=== PATIENT | male | born 1955 ===

== ENCOUNTER 2023-02-28 11:32 | Emergency (ER) | payer OTHER, MEDICAID, SELFPAY ==
--- NOTE | 2023-02-28 | ECG_ITS ---
Test Reason : CHEST PAIN Blood Pressure : / mmHG Vent. Rate : 080 BPM Atrial Rate : 080 BPM P-R Int : 190 ms QRS Dur : 118 ms QT Int : 390 ms P-R-T Axes : 000 -04 034 degrees QTc Int : 449 ms Normal sinus rhythm Low voltage QRS Right bundle branch block Abnormal ECG No previous ECGs available Referred By: Generic ED Physician Electronically Signed By:RONEY WADE
--- NOTE | ~2023-02-28 | CT_ITS ---
EXAMINATION: CT HEAD WITHOUT CONTRAST CLINICAL INFORMATION: Altered mental status. COMPARISON: None. TECHNIQUE: Multidetector volumetric imaging of the head was performed without intravenous contrast material. This CT examination was performed using dose optimization techniques as appropriate, variously including the following: *Automated exposure control *Adjustment of mA and/or kV according to patient size (this includes techniques or standardized protocols for targeted exams where dose is matched to indication/reason for exam; i.e. extremities or head) *Use of iterative reconstruction technique Dose: 1000 mGy-cm FINDINGS: Dense, dystrophic calcifications are present in the right basal ganglia and thalamus, most notably along the posterior and lateral margins of the thalamus. There is decreased volume of the right thalamus as well as wallerian degeneration along the right corticospinal tract at the right cerebellar peduncle. There is no evidence of acute intracranial hemorrhage or territorial infarction. No abnormal mass-effect or midline shift is seen. [place] to white matter differentiation is well preserved. No extra axial fluid collections. Mild enlargement of the ventricles, sulci, and extra-axial CSF spaces is indicative of parenchymal volume loss. Multiple areas of hypoattenuation in the subcortical and periventricular white matter are most consistent with chronic microangiopathic changes. The soft tissues and osseous structures are normal. The sinuses and mastoid air cells are clear. CT/CT head/brain wo IV con IMPRESSION: 1. No acute intracranial pathology. 2. Dystrophic calcifications in the right basal ganglia and thalamus with associated Wallerian degeneration along the right corticospinal tract, potentially corresponding to the sequela of an old injury or infarct. Consider correlation with brain MRI with and without contrast.
--- NOTE | ~2023-02-28 | XR_ITS ---
EXAMINATION: XR CHEST CLINICAL INFORMATION: Shortness of breath COMPARISON: None available. TECHNIQUE: Frontal view of the chest was obtained. FINDINGS: The lung volumes are low. Post-CABG changes. Cardiac and mediastinal contours are otherwise normal. The lungs are clear. No pleural effusion or pneumothorax. Bony structures are unremarkable. XR/XR chest 1V IMPRESSION: Low lung volumes. No evidence for acute disease in the chest.
[2023-02-28 11:40] VITALS: BP 149/82; BP 180/110; PULSE 104; PULSE 107; RESP 20; TEMP 37; O2SAT 95; O2SAT 97; BMI 38.4
[2023-02-28 12:06] LABS: MANUAL DIFF FLAG NO
[2023-02-28 12:08] LABS: Basophils Absolute Auto 0.1 X10*3/uL (0.0-0.2); Basophils Percent Auto 0.7 % (0-2); Eosinophils Absolute Auto 0.3 X10*3/uL (0.0-0.4); Eosinophils Percent Auto 2.1 % (0-4); Hematocrit 45.7 % (42.0-52.0); Hemoglobin 14.9 g/dl (14.0-18.0); Imm Gran Abs Auto 0.06 X10*3/uL (0.00-0.03); Imm Gran Pct Auto 0.5 % (0.0-0.4); Lymphocytes Absolute Auto 2.3 X10*3/uL (1.2-4.9); Lymphocytes Percent Auto 18.9 % (20-40); Mean Corpuscular HGB Conc 32.6 g/dl (31.0-36.0); Mean Corpuscular Hemoglobin 29.9 pg (27.0-33.0); Mean Corpuscular Volume 91.8 fL (80.0-98.0); Mean Platelet Volume 10.2 fL (9.4-12.4); Monocytes Percent Auto 8.6 % (2-11); Neutrophils Absolute Auto 8.2 x10*3/uL (2.0-8.3); Neutrophils Percent Auto 69.2 % (45-73); Platelet Count 238 X10*3/uL (160-400); Red Blood Count 4.98 X10*6/uL (4.60-5.80); Red Cell Distribution Width 14.6 % (11.0-16.0); White Blood Count 11.9 X10*3/uL (4.8-10.8)
--- NOTE | 2023-02-28 12:09 | ED_ITS ---
HPI - General Adult General Chief complaint: Altered Mental Status Stated complaint: AMS Time Seen by Provider: 02/28/23 12:07 Source: patient and EMS Mode of arrival: EMS Limitations: altered mental status History of Present Illness HPI narrative: Patient is a 67 year old assigned male at with a history of CAD status post 3 vessel CAB in 2007, HTN, HLD, and atrial flutter presenting to the emergency department today with altered mental status. EMS states that the patient was found wandering around outside. When approached by EMS and police, he informed them he was looking for his male cat named Boy and was only his shorts. Patient states that he has no complaints at this time. Patient states that he is unsure if he is taking his medications like he is supposed to. Patient states that he has a girlfriend named Amanda who he last spoke to approximately 1 week ago. Patient states the year is 1997. Patient denies any dizziness, lightheadedness, abdominal pain, nausea, vomiting, fever, chills, blurry vision, double vision, loss of vision, chest pain, difficulty breathing, shortness of breath, back pain, night sweats, pain with urination, increased urinary frequency, increased urinary urgency, blood in his urine or stool, syncope or a near syncopal episode, recent trauma or falls, bowel incontinence, bladder incontinence, bowel retention, bladder retention, or any other complaints at this time. Patient denied all complaints however, patient is a poor historian. Treatments prior to arrival: none Related Data Allergies Allergy/AdvReac Type Severity Reaction Status Date / Time No Known Allergies Allergy Verified 02/28/23 11:46 Review of Systems 2 Review of Systems: Yes Unobtainable due to mental status (patient is confused) Constitutional: Constitutional: Reports no additional constitutional complaints, Denies chills, Denies fever(s) and Denies night sweats Eyes: Eyes: Reports no additional eye complaints, Denies blurry vision, Denies change in vision, Denies diplopia, Denies eye discharge, Denies loss of vision and Denies eye pain ENT: Denies dizziness Cardiovascular: Cardiovascular: Reports no additional cardiovascular complaints, Denies chest pain, Denies lightheadedness, Denies Loss of Consciousness and Denies dyspnea Respiratory: Respiratory: Reports no additional respiratory complaints and Denies dyspnea Gastrointestinal: Gastrointestinal: Reports no additional gastrointestinal complaints, Denies abdominal pain, Denies melena, Denies hematochezia, Denies change in bowel habits and Denies change in stool character Genitourinary: Genitourinary: Reports no additional male genitourinary complaints, Denies hematuria, Denies oliguria, Denies difficulty urinating, Denies dysuria, Denies urinary frequency, Denies urinary hesitancy, Denies urinary incontinence and Denies urinary urgency Musculoskeletal: Musculoskeletal: Reports no additional musculoskeletal complaints, Denies numbness and Denies tingling Neurologic: Reports confusion, Denies dizziness, Denies loss of vision, Denies numbness and Denies tingling Psychiatric: Psychiatric: Reports no additional psychiatric complaints and Reports confusion Endocrine: Endocrine: Reports no additional endocrine complaints Hematologic/Lymphatic: Hematologic/Lymphatic: Reports no additional hematologic/lymphatic complaints Allergic/Immunologic: Allergic/Immunologic: Reports no additional allergic/immunologic complaints [facility] Past Medical History Attestation statement: The following information was validated with the patient. Source: old records reviewed, nursing notes reviewed and other (reviewed [facility] Emergency Department note from 01/02/2021) Social History Social History Advance Directives: No Physical Exam ED Vital Signs: Vital Signs - 24 hr 02/28/23 11:40 02/28/23 14:46 Temperature 98.6 F 97.8 F Pulse Rate 104 H 86 Respiratory Rate 20 16 Blood Pressure 149/82 H 133/96 H Pulse Oximetry 95 94 Oxygen Delivery Method Room Air Room Air BMI result Body Mass Index 38.4 Const General: confusion Nutritional Appearance: overweight Orientation/consciousness: oriented to person, oriented to place, No oriented to time and confusion Limitations: other limitations (confusion) [facility] Head: Yes normal to inspection and Yes atraumatic Ears: hearing grossly normal bilaterally and external ears normal General nose exam: Normal external nose present, no nasal discharge noted and no epistaxis Face and sinus: Yes normal facial exam, No abrasion and No laceration Mouth: Normal oral and palatal mucosa present, no drooling and no muffled voice Eyes General: appearance normal, both eyes and all related structures Periorbital: periorbital findings normal Eyelids: Yes eyelids normal Conjunctivae: conjunctivae normal Pupils: Equal, round and reactive pupils present EOM: EOMs intact bilaterally Neck Neck: Yes normal visual inspection, Yes full ROM and Yes no lymphadenopathy Chest Chest palpation & inspection: normal inspection of the chest Resp Effort & Inspection: normal respiratory effort and able to speak in complete sentences Auscultation: clear to auscultation bilaterally Cardio Rate: regular rate Rhythm: regular rhythm GI Inspection: Yes normal to inspection Neuro General: oriented to person, oriented to place, No oriented to time and confusion Cranial nerves: Yes Equal, round and reactive pupils present Cognition (Neuro): normal cognition Motor exam (neuro): 5/5 motor strength present throughout Sensory Exam: Normal double simultaneous stimulation for sensation Coordination: [id number] test normal Extrem General: Yes normal to inspection, Yes full ROM and Yes capillary refill normal Psych Appearance: grossly normal Mental Status: mental status grossly normal Affect: normal affect Attitude: cooperative Thought process: Normal thought process present Thought content: Normal thought content present Insight: Good insight present (Psych) Course Course Course Narrative: 1550: CT from 2019 of the head / face show the same calcifications as the ones discussed today - confirming there is no acute intracranial process. 1556: Spoke with the patient's girlfriend Amanda. She confirmed that his level of confusion is his baseline. Amanda states that she goes and checks on him often and she believes he is safe to be discharged. Patient is requesting to be discharged home. Agree that patient is safe to be discharged home. Medical Decision Making Medical Decision Making [facility] Narrative: Patient is a 67 year old assigned male at with a history of atrial flutter, CAD, HTN, and HLD presenting to the emergency department today after being found outside. Patient's physical exam showed a confused individual but was otherwise unremarkable. Patient's blood work was unremarkable. Patient's refusing to provide a urine sample. Patient's EKG was unremarkable. Patient's chest x-ray showed no acute process. Patient's head CT showed calcifications however, these calcifications were present in 2019. I spoke to the patient's girlfriend Amanda who confirmed this is the patient's baseline and that he is safe for discharge as she will be in the home with him. I explained my physical exam findings as well as all test results to the patient and the patient's partner. I answered all questions asked by the patient and the patient's partner. I stressed the importance of the patient taking his medication as prescribed. I stressed the importance of the patient following up with his primary care provider. I stressed the importance of the patient returning to the emergency department immediately if his symptoms were to worsen or if he were to develop any dizziness, shortness of breath, difficulty breathing, chest pain, blurry vision, loss of vision, nausea, vomiting, abdominal pain, fever, chills, back pain, or any other complaints. Patient verbalized agreement and understanding with this treatment plan and discharge. Differential Diagnosis Differential Diagnoses: The differential diagnosis associated with the presentation includes Confusion Cognitive decline AMS Admission/Observation Consideration of admission/observation: Escalation of care including admission/observation considered Patient would have been admitted to the hospital had his work up had any findings where hospital admission was appropriate and his clinical presentation warranted hospital admission. Lab Data MDM Lab Attestation statement: I reviewed the patient's lab results. My interpretation of these studies and their corresponding values is that they are grossly normal. 02/28/23 11:57 02/28/23 11:57 Labs: Lab Results 02/28/23 02/28/23 02/28/23 Range/Units 11:57 12:35 12:43 WBC 11.9 H (4.8-10.8) X10*3/uL RBC 4.98 (4.60-5.80) X10*6/uL Hgb 14.9 (14.0-18.0) g/dl Hct 45.7 (42.0-52.0) % MCV 91.8 (80.0-98.0) fL MCH 29.9 (27.0-33.0) pg MCHC 32.6 (31.0-36.0) g/dl RDW 14.6 (11.0-16.0) % Plt Count 238 (160-400) X10*3/uL MPV 10.2 (9.4-12.4) fL Immature Gran % (Auto) 0.5 H (0.0-0.4) % Neut % (Auto) 69.2 (45-73) % Lymph % (Auto) 18.9 L (20-40) % [place] % (Auto) 8.6 (2-11) % Eos % (Auto) 2.1 (0-4) % Baso % (Auto) 0.7 (0-2) % Lymph # (Auto) 2.3 (1.2-4.9) X10*3/uL [place] # (Auto) 1.0 (0.1-1.2) X10*3/uL Eos # (Auto) 0.3 (0.0-0.4) X10*3/uL Baso # (Auto) 0.1 (0.0-0.2) X10*3/uL Abs Immat Gran (auto) 0.06 H (0.00-0.03) X10*3/uL Absolute Neuts (auto) 8.2 (2.0-8.3) x10*3/uL Absolute Nucleated RBC 0.000 (0.0-0.012) X10*3/uL Nucleated RBC % (auto) 0.0 (0.0-0.2) /100WBC VBG pH 7.42 (7.32-7.43) VBG pCO2 39 mmHg VBG pO2 49 mmHg VBG HCO3 25 (22-26) mmol/L VBG O2 Saturation 79.0 % VBG Base Excess 1.5 mmol/L Sodium 139 (135-145) mmol/L Potassium 4.5 (3.3-5.1) mmol/L Chloride 107 (96-108) mmol/L Carbon Dioxide 23 (22-29) mmol/L Anion Gap 14 (12-20) BUN 22 H (9-16) mg/dL Creatinine 0.94 (0.5-1.4) mg/dL Estim Creat Clear Calc 111.5 Estimated GFR > 60 Random Glucose 108 (60-115) mg/dL Lactic Acid 1.9 (0.5-2.0) mmol/L Calcium 9.5 (8.4-10.2) mg/dL Total Bilirubin 0.3 (0.0-1.0) mg/dL AST 14 (5-37) U/L ALT 16 (0-40) U/L Alkaline Phosphatase 91 (39-117) U/L Ammonia 31 (13-55) umol/L Total Protein 8.0 (6.5-8.0) g/dL Albumin 4.0 (3.5-5.0) g/dL Ethyl Alcohol < 10 mg/dL Influenza Type A (PCR) NEGATIVE (Negative) Influenza Type B (PCR) NEGATIVE (Negative) RSV RNA Qual (PCR) NEGATIVE (Negative) SARS-CoV-2 RNA (RT-PCR) NEGATIVE (Negative) Independent Interpretation I performed an independent interpretation of an: EKG, Plain X-Ray and CT Scan Interpretation: My interpretation is in agreement with the radiologist's impression of these imaging studies. - EXAMINATION: CT HEAD WITHOUT CONTRAST CLINICAL INFORMATION: Altered mental status. COMPARISON: None. TECHNIQUE: Multidetector volumetric imaging of the head was performed without intravenous contrast material. This CT examination was performed using dose optimization techniques as appropriate, variously including the following: *Automated exposure control *Adjustment of mA and/or kV according to patient size (this includes techniques or standardized protocols for targeted exams where dose is matched to indication/reason for exam; i.e. extremities or head) *Use of iterative reconstruction technique Dose: 1000 mGy-cm FINDINGS: Dense, dystrophic calcifications are present in the right basal ganglia and thalamus, most notably along the posterior and lateral margins of the thalamus. There is decreased volume of the right thalamus as well as wallerian degeneration along the right corticospinal tract at the right cerebellar peduncle. There is no evidence of acute intracranial hemorrhage or territorial infarction. No abnormal mass-effect or midline shift is seen. [place] to white matter differentiation is well preserved. No extra axial fluid collections. Mild enlargement of the ventricles, sulci, and extra-axial CSF spaces is indicative of parenchymal volume loss. Multiple areas of hypoattenuation in the subcortical and periventricular white matter are most consistent with chronic microangiopathic changes. The soft tissues and osseous structures are normal. The sinuses and mastoid air cells are clear. CT/CT head/brain wo IV con IMPRESSION: 1. No acute intracranial pathology. 2. Dystrophic calcifications in the right basal ganglia and thalamus with associated Wallerian degeneration along the right corticospinal tract, potentially corresponding to the sequela of an old injury or infarct. Consider correlation with brain MRI with and without contrast. Dictated By: n Signed By: Electronically signed by N 02/28/23 1304 - EXAMINATION: XR CHEST CLINICAL INFORMATION: Shortness of breath COMPARISON: None available. TECHNIQUE: Frontal view of the chest was obtained. FINDINGS: The lung volumes are low. Post-CABG changes. Cardiac and mediastinal contours are otherwise normal. The lungs are clear. No pleural effusion or pneumothorax. Bony structures are unremarkable. XR/XR chest 1V IMPRESSION: Low lung volumes. No evidence for acute disease in the chest. Dictated By: Angeles Turner MD Signed By: Electronically signed by Angeles Turner MD 02/28/23 1237 - Vent. Rate: 080 BPM Atrial Rate: 080 BPM P-R Int: 190 ms QRS Dur: 118 ms QT Int: 390 ms P-R-T Axes: 000 -04 034 degrees QTc Int: 449 ms Normal sinus rhythm Low voltage QRS Right bundle branch block Abnormal ECG No previous ECGs available DD/ 1209 Radiology Impression Discussion of test interpretation with radiology: I have reviewed the radiologist's reading. Independent Historian Clinical information obtained from an independent historian. History obtained from or confirmed by: EMS (EMS provided additional history and confirmed the history provided by the patient.) and Other (patient's partner provided additional history and confirmed the history provided by the patient.) External Record Review External record reviewed: Outside ED record (reviewed [facility] ED visit from 01/02/2021) Chronic Conditions Patient?s care impacted by: Hypertension Critical Care Time Critical Care Time Critical Care Time: Yes Total Critical Care Time: 40 Attestation: I spent 40 minutes of Critical Care Time with this patient. This does not include time spent on separately reported billable procedures. Discharge Plan Discharge Clinical Impression: Chronic confusion Patient Disposition: Home, Self-Care Instructions: Mild Cognitive Impairment: New Diagnosis (DC) Additional Instructions: Follow up with your primary care provider. Return to the emergency department immediately if your symptoms worsen or if you develop any dizziness, shortness of breath, difficulty breathing, chest pain, blurry vision, loss of vision, nausea, vomiting, abdominal pain, fever, chills, back pain, or any other complaints. Referrals: [facility] [Provider Group] (Call to establish and follow up with your primary care provider. If you already have a primary care provider, please follow up with them.) [facility] [Provider Group] (Call to establish and follow up with your primary care provider. If you already have a primary care provider, please follow up with them.) [facility] [Provider Group] (Call to establish and follow up with your primary care provider. If you already have a primary care provider, please follow up with them.) Print Language: Hong Konger
[2023-02-28 12:23] LABS: Alanine Aminotransferase 16 U/L (0-40); Alkaline Phosphatase 91 U/L (39-117); Anion Gap 14 (12-20); Aspartate Amino Transferase 14 U/L (5-37); Bilirubin Total 0.3 mg/dL (0.0-1.0); Blood Urea Nitrogen 22 mg/dL (9-16); Calcium 9.5 mg/dL (8.4-10.2); Carbon Dioxide 23 mmol/L (22-29); Chloride 107 mmol/L (96-108); Creatinine Clr Calc Pharmacy 111.5; Estimated Glomerular Filt Rate > 60; Glucose Random 108 mg/dL (60-115); Potassium 4.5 mmol/L (3.3-5.1); Sodium 139 mmol/L (135-145)
--- NOTE | 2023-02-28 12:23 | PC.NURSE ---
unkempt, smelling strongly of urine. unsure of patient's baseline. pt requesting to speak with his girlfriend, will obtain phone number from pt. iv established, labs drawn and sent.
--- NOTE | 2023-02-28 12:47 | PC.NURSE ---
reporting girlfriend by the name of Aamnda - [phone]. pt remains in room, resting quietly offering no complaints. on cardiac nurse specialist. awaiting lab results and imaging.
[2023-02-28 12:48] LABS: VBG Base Excess 1.5 mmol/L; VBG HCO3 25 mmol/L (22-26); VBG pCO2 39 mmHg; VBG pH 7.42 (7.32-7.43); VBG pO2 49 mmHg
[2023-02-28 12:58] LABS: Venous Blood Gas Refer to POC result
[2023-02-28 13:01] LABS: Ammonia 31 umol/L (13-55)
[2023-02-28 13:05] LABS: Lactic Acid 1.9 mmol/L (0.5-2.0)
[2023-02-28 13:08] LABS: Ethanol < 10 mg/dL
[2023-02-28 13:59] LABS: Influenza A PCR NEGATIVE (Negative); Influenza B PCR NEGATIVE (Negative); Resp Syncy Virus RNA Qual PCR NEGATIVE (Negative); SARS COV2 PCR INHOUSE NEGATIVE (Negative)
[2023-02-28 14:46] VITALS: BP 133/96; PULSE 86; RESP 16; TEMP 36.6; O2SAT 94
[2023-02-28 16:59] VITALS: BP 126/91; PULSE 85; RESP 19; TEMP 36.7; O2SAT 96
--- NOTE | 2023-02-28 18:22 | MHC.EDTECH ---
Staff stood patient up to walk. Patient was able to stand up in a reasonable amount of time. Patient walked a short distance and was unsteady on their feet and using staff and wall assistance to avoid falling.
--- NOTE | 2023-02-28 18:32 | PC.NURSE ---
PT REQUIRES ASSISTANCE FOR SAFE AMBULATION LESS THAN HOUSEHOLD DISTANCE. HE STATES HE LIVES ALONE. HE WAS INCONTINENT OF A SMALL AMOUNT OF LOOSE STOOL NOTED BY HIS SHORTS AND BEDDING. APPEARS THAT PT MAY REQUIRE CASE MANAGEMENT FOR SAFE DISCHARGE HOME
[2023-02-28 20:20] LABS: Appearance Urine Clear; Color Urine Yellow; Glucose Urine UA Negative (Negative); Leukocyte Esterase Urine Negative (Negative); Nitrite Urine Negative (Negative); Specific Gravity - Urine 1.025 (1.005-1.025); Urine Blood Negative (Negative); Urine Ketones Negative (Negative); Urine Protein Negative (Neg-Trace)
[2023-02-28 20:26] LABS: Amphetamine Screen Urine Not Detected (Not Detect); Barbiturates, Urine Not Detected (Not Detect); Benzodiazepines Screen Urine Not Detected (Not Detect); Cannabinoid Screen Urine Not Detected (Not Detect); Cocaine Screen Urine Not Detected (Not Detect); Fentanyl, urine Not Detected (Not Detect); Opiate Screen Urine Not Detected (Not Detect); Phencyclidine Screen Urine Not Detected (Not Detect)
--- NOTE | 2023-02-28 22:08 | PC.NURSE ---
pt transferred to overflow unit
[2023-03-01 06:26] VITALS: BP 133/89; PULSE 95; RESP 18; TEMP 36.2; O2SAT 96
[2023-03-01 08:22] VITALS: BP 153/90; PULSE 85; RESP 16; TEMP 36.9; O2SAT 96
--- NOTE | 2023-03-01 10:06 | MHC.CM.ED ---
Addendum entered by Shasta Moraes 03/01/23 12:09: Met w/pt to discuss d/c planning needs: pt somewhat difficult to understand: not entirely reliable historian. States he lives alone, (no pets) and has no services. He had no recollection of what brought him to [facility] or why he was here. Pt states he walks to the grocery store if needed or has his friend Amanda transport him. He denied Amanda was his PLASTER MOLDER and said she was a neighbor who helps. Unsure of pt's baseline mental status: Insurance may be [employer] - ED CM may f/u on Thursday for ? services provided by them. Review of EMR does not support medical admission. Pt unsteady during attempts to ambulate: will need to be see by PT on 03/02: No referrals made at this time pending eval. Pt was ready to d/c on 02/28 prior to ED staff witnessing unsteady gait. ED CM to follow Original Note: Received consult for assessment of d/c needs: Pt found outside in shorts looking for his cat: brought in by EMS for eval. Unkept and malodorous: confused. Per notes, pt's friend Amanda states confusion is baseline. CM attemtped to contact Amanda : message left. CM attempted to meet w/pt: sleeping at this time: will reapproach after lunch.
[2023-03-01 16:30] VITALS: BP 114/54; PULSE 77; RESP 19; TEMP 36.1; O2SAT 96
--- NOTE | 2023-03-01 19:48 | PC.NURSE ---
This RN took over pt assignment at 1900. Pt resting comfortably in bed watching tv. Plan of care ongoing.
[2023-03-02 05:43] VITALS: RESP 16
--- NOTE | 2023-03-02 06:56 | PC.NURSE ---
Report and handoff given to oncoming RN.
--- NOTE | 2023-03-02 08:08 | MHC.CM.ED ---
Patient remains in ER overflow. Patient is active with [facility]. Spoke with Ines at [employer]. Patient is well known to their agency. Ines was shocked to hear that patient was found wandering. Patient tends to not want to leave his home. Patient has in-home care twice a day. Staff will help cue patient for meds, try to keep the apartment as clean as possible including dishes, laundry etc. [employer] has been working to come up with a plan to deep clean patient's apartment. Patient lives alone. Copy of HCP will be sent by Ines. Physical therapy eval is pending. Continue to monitor for d/c needs.
--- NOTE | 2023-03-02 10:46 | PC.NURSE ---
assumed care of this pt at 0930. pt in bed at the time of assuming care. pt denies pain, vss. no complaints, will continue to observe.
--- NOTE | 2023-03-02 13:15 | MHC.CM.ED ---
Physical therapy eval was attempted. However patient refused to get to the edge of the bed. Spoke with Ines of [facility]. They want patient to return home and they will resume services and evaluate patient in his home. Transportation arranged for 230pm. Spoke with Amanda via telephone at [phone]. Amanda spoke with Agnes and Benjamin. They both feel patient can safely return home. Patient, Misha BECERRA and Katarina RUANO aware. Continue to monitor for d/c needs.
--- NOTE | 2023-03-02 14:57 | PC.NURSE ---
pt picked up by [facility] via wheelchair.
== END 2023-03-02 14:30 | disposition home or self-care (01) ==
PROVIDERS: Physician Assistant Medical; Emergency Provider Emergency Medicine; PCP Internal Medicine Rheumatology
DX: R41.0 Disorientation, unspecified (principal); I10 Essential (primary) hypertension; E78.5 Hyperlipidemia, unspecified; Z95.1 Presence of aortocoronary bypass graft; Z20.822 Contact with and (suspected) exposure to COVID-19; Z20.828 Contact with and (suspected) exposure to other viral communicable diseases
CPT/HCPCS: 0241U; 36415; 51798; 70450; 71045; 80053; 80307; 81003; 82140; 82803; 83605; 85025; 87040; 93005; 99285